=== PATIENT | male | born 1955 | race Caucasian/White ===

== ENCOUNTER → 2018-11-03 | Outpatient (CLI) | payer OTHER ==
[~2018-11-03] MED LIST: FENOFIBRATE160 MG PO; NORCO 5-325 TA1 EACH PO; VITAMIN D400 UNIT
== END ==
LOC: CAT 16:17
DX: Z13.6 Encounter for screening for cardiovascular disorders (principal); E78.00 Pure hypercholesterolemia, unspecified

== ENCOUNTER → 2021-11-12 | Outpatient (CLI) | payer OTHER | LOC: CAT 09:26 | PROVIDERS: ATTEND Family Medicine | DX: Z13.6 Encounter for screening for cardiovascular disorders (principal); I25.10 Atherosclerotic heart disease of native coronary artery without angina pectoris; E78.00 Pure hypercholesterolemia, unspecified ==